=== PATIENT | female | born 1990 | race Caucasian/White ===

== ENCOUNTER 2018-12-13 08:33 | Inpatient (IN) | payer OTHER ==
[2018-12-13] MEDS ORDERED: IBUPROFEN 600 MG TAB PO (12:00)
[2018-12-13] MEDS ORDERED: BUTORPHANOL 2 MG INJ IV (12:00)
[2018-12-13] MEDS ORDERED: CARBOPROST 250 MCG INJ IM (12:00)
[2018-12-13] MEDS ORDERED: OXYTOCIN 30 UNITS/LR 500 ML IV ×2 (12:00)
[2018-12-13] MEDS ORDERED: LIDOCAINE 1% (MPF) 30 ML INJ INJ (12:00)
[2018-12-13 13:52] LABS: ADD MAN DIFF? NO
[2018-12-13 13:53] LABS: BASOPHILS % 0.1 % (0.0-2.0); EOSINOPHILS % 0.4 % (0.0-7.0); HEMATOCRIT 33.5 % (37.0-47.0); HEMOGLOBIN 10.8 g/dl (12.0-16.0); LYMPHOCYTES # 1.3 10^3/ul (0.8-2.9); LYMPHOCYTES % 16.7 % (15.0-51.0); MEAN CORPUSCULAR HEMOGLOBIN 29.4 pg (29.0-33.0); MEAN CORPUSCULAR HGB CONC 32.2 g/dl (32.0-37.0); MEAN CORPUSCULAR VOLUME 91.3 fl (82.0-101.0); MEAN PLATELET VOLUME 10.5 fl (7.4-10.4); MONOCYTE # 0.5 10^3/ul (0.3-0.9); MONOCYTES % 6.6 % (0.0-11.0); NEUTROPHIL # 5.7 10^3/ul (1.6-7.5); NEUTROPHILS % 74.9 % (39.0-77.0); PLATELET COUNT 171 10^3/UL (140-415); RED BLOOD COUNT 3.67 10^6/ul (4.20-5.40); RED CELL DISTRIBUTION WIDTH 13.2 % (11.5-14.5)
[2018-12-13 13:53] LABS: WHITE BLOOD COUNT 7.6 10^3/ul (4.8-10.8)
[2018-12-13] MEDS: MISOPROSTOL 50 MCG CAPSULE PO (13:53)
[2018-12-13 14:12] LABS: INR 0.99; PROTIME 13.2 Sec (11.9-14.9)
[2018-12-13 14:13] LABS: PARTIAL THROMBOPLASTIN TIME 30.8 Sec (23.0-35.0)
[2018-12-13] MEDS: LACTATED RINGER'S 1,000 ML IV ×3 (14:32→21:35)
[2018-12-13 14:41] LABS: HEPATITIS B SURFACE ANTIGEN NEGATIVE (NEGATIVE)
[2018-12-13 16:13] LABS: RAPID PLASMA REAGIN NONREACTIVE (NR)
[2018-12-13] MEDS ORDERED: KETOROLAC 30 MG INJ IV (20:30)
[2018-12-13] MEDS ORDERED: NALOXONE (0.4 MG/ML) INJ IV (20:30)
[2018-12-13] MEDS ORDERED: ZOLPIDEM 5 MG TAB PO (20:30)
[2018-12-13] MEDS ORDERED: DIPHENHYDRAMINE 50 MG INJ IV (20:30)
[2018-12-13] MEDS ORDERED: ONDANSETRON 4 MG INJ IV (20:30)
[2018-12-13] MEDS ORDERED: HYDROmorphONE 0.5 MG/0.5 ML SYG IV ×2 (20:30)
[2018-12-14] MEDS: FENTAnyl 2MCG/ML-ROPIV 0.2% 100 ML BAG EPI ×2 (05:18→13:51)
[2018-12-14] MEDS: LACTATED RINGER'S 1,000 ML IV ×2 (05:19→13:49)
[2018-12-14] MEDS: MISOPROSTOL 50 MCG CAPSULE PO ×2 (05:24→09:31)
[2018-12-14] MEDS: OXYTOCIN 30 UNITS/LR 500 ML IV ×2 (15:00→20:01)
[2018-12-14] MEDS: METHYLERGONOVINE 0.2 MG INJ IM (20:00)
[2018-12-14] MEDS: MISOPROSTOL 200 MCG TAB PR (20:00)
[2018-12-14] MEDS: LACTATED RINGER'S 1,000 ML IV* (21:08)
[2018-12-14] MEDS: DEXTROSE 5%-LR 1,000 ML IV (21:08)
[2018-12-14] MEDS ORDERED: OXYCODONE/ASPIRIN (4.88/325) TAB PO (21:30)
[2018-12-14] MEDS ORDERED: SENNA/DOCUSATE NA (8.6MG/50MG) TAB PO (21:30)
[2018-12-14] MEDS ORDERED: ACETAMINOPHEN 325 MG TAB PO (21:30)
[2018-12-14] MEDS ORDERED: DIBUCAINE 1% 30 GM OINT TOP (21:30)
[2018-12-14] MEDS ORDERED: DIPHENHYDRAMINE 50 MG INJ IV (21:30)
[2018-12-14] MEDS ORDERED: ONDANSETRON 4 MG INJ IV (21:30)
[2018-12-14] MEDS ORDERED: OXYTOCIN 30 UNITS/LR 500 ML IV (21:30)
[2018-12-14] MEDS ORDERED: MISOPROSTOL 200 MCG TAB PR (21:30)
[2018-12-14] MEDS ORDERED: CARBOPROST 250 MCG INJ IM (21:30)
[2018-12-14] MEDS ORDERED: ZOLPIDEM 5 MG TAB PO (21:30)
[2018-12-14] MEDS ORDERED: METHYLERGONOVINE 0.2 MG INJ IM (21:30)
[2018-12-14] MEDS: WITCH HAZEL/GLYCERIN PAD PR (23:42)
[2018-12-14] MEDS: LANOLIN HPA 1 PKT TOP (23:42)
[2018-12-14] MEDS: IBUPROFEN 600 MG TAB PO (23:42)
[2018-12-14] MEDS: BENZOCAINE 20% 56 ML SPRAY TOP (23:43)
[2018-12-15] MEDS: LACTATED RINGER'S 1,000 ML IV* ×3 (05:08→21:08)
[2018-12-15] MEDS: DEXTROSE 5%-LR 1,000 ML IV ×3 (05:08→21:08)
[2018-12-15] MEDS: IBUPROFEN 600 MG TAB PO ×3 (05:51→18:22)
[2018-12-15 06:52] LABS: ADD MAN DIFF? NO
[2018-12-15 06:57] LABS: WHITE BLOOD COUNT 11.3 10^3/ul (4.8-10.8)
[2018-12-15 06:57] LABS: BASOPHILS % 0.2 % (0.0-2.0); EOSINOPHILS # 0.1 10^3/ul (0.0-0.5); EOSINOPHILS % 0.5 % (0.0-7.0); HEMATOCRIT 30.4 % (37.0-47.0); LYMPHOCYTES # 1.8 10^3/ul (0.8-2.9); MEAN CORPUSCULAR HEMOGLOBIN 29.3 pg (29.0-33.0); MEAN CORPUSCULAR HGB CONC 32.9 g/dl (32.0-37.0); MEAN CORPUSCULAR VOLUME 89.1 fl (82.0-101.0); MEAN PLATELET VOLUME 10.8 fl (7.4-10.4); MONOCYTE # 0.8 10^3/ul (0.3-0.9); MONOCYTES % 6.8 % (0.0-11.0); NEUTROPHIL # 8.5 10^3/ul (1.6-7.5); NEUTROPHILS % 75.8 % (39.0-77.0); PLATELET COUNT 157 10^3/UL (140-415); RED BLOOD COUNT 3.41 10^6/ul (4.20-5.40); RED CELL DISTRIBUTION WIDTH 12.7 % (11.5-14.5)
[2018-12-16] MEDS: IBUPROFEN 600 MG TAB PO ×2 (00:36→06:59)
[2018-12-16] MEDS: DEXTROSE 5%-LR 1,000 ML IV ×2 (05:08→09:12)
[2018-12-16] MEDS: LACTATED RINGER'S 1,000 ML IV* ×2 (05:08→09:12)
[2018-12-16] MEDS: MEASLES,MUMPS,RUBELLA VACCINE INJ SC* (09:12)
[2018-12-16] MEDS: DIPHTH/TET/ACEL PERTUSS (ADULT) 0.5 ML VIAL IM* (10:12)
== END 2018-12-16 14:49 | disposition home or self-care (01) | DRG 807 ==
LOC: OBT 08:33 → L-D 08:34 → PP1 12-14 20:36 → OBT 11:53 → L-D 11:56 → PP1 12-14 20:57
PROC: 10E0XZZ Delivery of Products of Conception, External Approach (ICD-10-PCS; principal; 2018-12-14)
PROC: 0HQ9XZZ Repair Perineum Skin, External Approach (ICD-10-PCS; 2018-12-14)
PROC: 3E033VJ Introduction of Other Hormone into Peripheral Vein, Percutaneous Approach (ICD-10-PCS; 2018-12-14)
DX: O48.0 Post-term pregnancy (principal); O69.81X0 Labor and delivery complicated by cord around neck, without compression, not applicable or unspecified; Z37.0 Single live birth; O70.0 First degree perineal laceration during delivery; Z3A.40 40 weeks gestation of pregnancy
CPT/HCPCS: 62319; 76815; 76818; 82962; 85025; 85610; 85730; 86592; 86850; 86900; 86901; 87340